=== PATIENT | male | born 1960 | race African-American/Black ===

== ENCOUNTER 2018-11-03 15:40 | Inpatient (IN) ==
[2018-11-03] MEDS ORDERED: methylPREDNISolone SOD SUC 125 MG/2 ML VIAL IV STA (16:09)
[2018-11-03] MEDS ORDERED: SODIUM CHLORIDE 0.9% 1,000 ML IV STA (16:09)
[2018-11-03] MEDS ORDERED: ONDANSETRON 4 MG/2 ML VIAL IV STA (16:09)
[2018-11-03] MEDS ORDERED: METOCLOPRAMIDE 10 MG/2 ML VIAL IV STA (16:09)
[2018-11-03] MEDS ORDERED: DICYCLOMINE 20 MG/2 ML AMP IM ONE (16:09)
[2018-11-03] MEDS ORDERED: FAMOTIDINE 20 MG/2 ML VIAL IV STA (16:09)
[2018-11-03] MEDS ORDERED: fentaNYL 100 MCG/2 ML VIAL IV STA (16:09)
[2018-11-03 16:42] LABS: Basophils % 0.3 % (0.0-0.8); Eosinophils % 0.4 % (0.00-10.9); Hemoglobin 10.1 GM/DL (14.0-18.0); Immature Granulocytes Absolute 0.09 #; Mean Corpuscular HGB Conc 30.6 GM/DL (32-36); Mean Corpuscular Volume 82.9 FL (87-102); Mean Platelet Volume 10.2 FL (9.6-12.0); Monocytes % 11.3 % (1.7-12.7); Platelet Count 363 T/CUMM (130-400); Red Blood Count 3.98 MC/CUMM (3.8-5.5); Red Cell Distribution Width 13.2 % (9.3-17.3); White Blood Count 9.5 T/CUMM (4-12)
[2018-11-03 16:51] LABS: PT Patient Result 11.1 SECS; Partial Thromboplastin Time 31.4 SECS (0-40)
[2018-11-03 17:03] LABS: Alanine Aminotransferase 51 U/L (16-61); Albumin 2.6 G/DL (3.4-5.0); Alkaline Phosphatase 95 U/L (45-117); Aspartate Amino Transferase 48 U/L (0-37); Blood Urea Nitrogen 13 MG/DL (7-18); Calcium 9.2 MG/DL (8.5-10.1); Glucose 127 MG/DL (74-106); Osmolality,Calculated 278.5 MOS/KG (273-304); Total Protein 7.6 G/DL (6.4-8.3); Troponin I < 0.015 NG/ML (0.00-0.045)
[2018-11-03] MEDS ORDERED: ACETAMINOPHEN 325 MG TABLET PO PRN (21:37)
[2018-11-03] MEDS: MORPHINE 4 MG/1 ML VIAL IV PRN (22:59)
[2018-11-03] MEDS: metroNIDAZOLE INJ 500 MG in PREMIX 1 EACH IV SCH (23:02)
[2018-11-04] MEDS: LEVOFLOXACIN INJ 500 MG in PREMIX 1 EACH IV SCH ×2 (00:05→22:12)
[2018-11-04] MEDS: SODIUM CHLORIDE 0.9% 1,000 ML IV SCH ×3 (00:40→13:47)
[2018-11-04] MEDS: MORPHINE 4 MG/1 ML VIAL IV PRN ×4 (02:48→22:09)
[2018-11-04 04:41] LABS: Basophils % 0.2 % (0.0-0.8); Hemoglobin 9.3 GM/DL (14.0-18.0); Immature Granulocytes % 0.8 %; Immature Granulocytes Absolute 0.07 #; Lymphocytes # 0.6 10*3/uL (1.4-4.0); Lymphocytes % 6.6 % (21.2-54.2); Mean Corpuscular Volume 82.6 FL (87-102); Monocytes % 5.3 % (1.7-12.7); Neutrophils % 87.1 % (38.7-73.9); Platelet Count 312 T/CUMM (130-400); Red Blood Count 3.63 MC/CUMM (3.8-5.5); Red Cell Distribution Width 13.2 % (9.3-17.3); White Blood Count 8.5 T/CUMM (4-12)
[2018-11-04 05:05] LABS: Albumin 2.4 G/DL (3.4-5.0); Bilirubin,Total 0.5 MG/DL (0.2-1.0); Calcium 8.7 MG/DL (8.5-10.1); Osmolality,Calculated 284.5 MOS/KG (273-304); Total Protein 7.1 G/DL (6.4-8.3)
[2018-11-04] MEDS: metroNIDAZOLE INJ 500 MG in PREMIX 1 EACH IV SCH ×4 (05:22→23:31)
[2018-11-04] MEDS: PANTOPRAZOLE 40 MG TABLET PO SCH (08:41)
[2018-11-04] MEDS ORDERED: GLUCAGON 1 MG VIAL IM PRN (11:04)
[2018-11-04] MEDS ORDERED: DEXTROSE 50% 25 GM/50 ML VIAL IV PRN (11:04)
[2018-11-04] MEDS: INSULIN REGULAR 100 UNIT/ML SUBCUT SCH ×2 (12:15→17:28)
[2018-11-04] MEDS: amLODIPine 5 MG TABLET PO SCH (12:15)
[2018-11-04] MEDS: QUINAPRIL 20 MG TABLET PO SCH ×2 (12:15→20:36)
[2018-11-04] MEDS ORDERED: MESALAMINE 0.375 GM PO SCH (13:00)
[2018-11-04] MEDS: methylPREDNISolone SOD SUC 125 MG/2 ML VIAL IV SCH (15:13)
[2018-11-04] MEDS: ATORVASTATIN 10 MG TABLET PO SCH (17:28)
[2018-11-04] MEDS: FERROUS SULFATE 325 MG TABLET PO SCH (20:36)
[2018-11-04] MEDS: METOPROLOL TARTRATE 50 MG TABLET PO SCH (20:36)
[2018-11-04] MEDS: MESALAMINE 1000 MG SUPP RECTAL SCH (20:37)
[2018-11-05] MEDS: INSULIN REGULAR 100 UNIT/ML SUBCUT SCH ×5 (00:25→23:08)
[2018-11-05] MEDS: SODIUM CHLORIDE 0.9% 1,000 ML IV SCH ×2 (00:29→11:55)
[2018-11-05] MEDS: MORPHINE 4 MG/1 ML VIAL IV PRN ×4 (02:13→23:44)
[2018-11-05] MEDS: methylPREDNISolone SOD SUC 125 MG/2 ML VIAL IV SCH ×2 (02:16→12:35)
[2018-11-05 05:07] LABS: Risk Ratio 1.83; VLDL CHOLESTEROL 15.2 MG/DL
[2018-11-05] MEDS: metroNIDAZOLE INJ 500 MG in PREMIX 1 EACH IV SCH ×4 (05:48→23:09)
[2018-11-05] MEDS: FERROUS SULFATE 325 MG TABLET PO SCH ×2 (08:28→21:03)
[2018-11-05] MEDS: METOPROLOL TARTRATE 50 MG TABLET PO SCH ×2 (08:28→21:03)
[2018-11-05] MEDS: PANTOPRAZOLE 40 MG TABLET PO SCH (08:29)
[2018-11-05] MEDS: amLODIPine 5 MG TABLET PO SCH (08:29)
[2018-11-05] MEDS: QUINAPRIL 20 MG TABLET PO SCH ×2 (08:34→21:02)
[2018-11-05 11:40] LABS: Basophils % 0.2 % (0.0-0.8); Hematocrit 29.7 VOL% (42.0-52.0); Immature Granulocytes Absolute 0.09 #; Lymphocytes # 0.6 10*3/uL (1.4-4.0); Lymphocytes % 6.4 % (21.2-54.2); Mean Corpuscular HGB Conc 30.3 GM/DL (32-36); Mean Corpuscular Volume 84.6 FL (87-102); Mean Platelet Volume 10.2 FL (9.6-12.0); Neutrophils % 87.4 % (38.7-73.9); Platelet Count 354 T/CUMM (130-400); Red Blood Count 3.51 MC/CUMM (3.8-5.5); Red Cell Distribution Width 13.5 % (9.3-17.3); White Blood Count 8.8 T/CUMM (4-12)
[2018-11-05] MEDS: ATORVASTATIN 10 MG TABLET PO SCH (17:25)
[2018-11-05] MEDS: MESALAMINE 1000 MG SUPP RECTAL SCH (21:04)
[2018-11-05] MEDS: LEVOFLOXACIN INJ 500 MG in PREMIX 1 EACH IV SCH (21:31)
[2018-11-06] MEDS: SODIUM CHLORIDE 0.9% 1,000 ML IV SCH ×2 (01:19→13:06)
[2018-11-06] MEDS: methylPREDNISolone SOD SUC 125 MG/2 ML VIAL IV SCH (01:20)
[2018-11-06 04:38] LABS: Basophils % 0.1 % (0.0-0.8); Hematocrit 29.4 VOL% (42.0-52.0); Hemoglobin 8.7 GM/DL (14.0-18.0); Immature Granulocytes % 0.9 %; Immature Granulocytes Absolute 0.07 #; Lymphocytes # 0.6 10*3/uL (1.4-4.0); Lymphocytes % 7.3 % (21.2-54.2); Mean Corpuscular HGB Conc 29.6 GM/DL (32-36); Mean Corpuscular Volume 84.2 FL (87-102); Mean Platelet Volume 10.5 FL (9.6-12.0); Monocytes % 6.4 % (1.7-12.7); Neutrophils % 85.3 % (38.7-73.9); Platelet Count 320 T/CUMM (130-400); Red Blood Count 3.49 MC/CUMM (3.8-5.5); Red Cell Distribution Width 13.5 % (9.3-17.3); White Blood Count 8.1 T/CUMM (4-12)
[2018-11-06] MEDS: metroNIDAZOLE INJ 500 MG in PREMIX 1 EACH IV SCH ×2 (05:03→13:06)
[2018-11-06] MEDS: INSULIN REGULAR 100 UNIT/ML SUBCUT SCH ×2 (06:25→13:31)
[2018-11-06] MEDS: FERROUS SULFATE 325 MG TABLET PO SCH (08:51)
[2018-11-06] MEDS: METOPROLOL TARTRATE 50 MG TABLET PO SCH (08:51)
[2018-11-06] MEDS: QUINAPRIL 20 MG TABLET PO SCH (08:51)
[2018-11-06] MEDS: PANTOPRAZOLE 40 MG TABLET PO SCH (08:51)
[2018-11-06] MEDS: amLODIPine 5 MG TABLET PO SCH (08:51)
[2018-11-06 12:44] VITALS: BP 124/63
== END 2018-11-06 14:15 | disposition home or self-care (01) | DRG 387 ==
LOC: EDUNIT# → EDBD → N.EDINP 15:40 → N.ED 15:40 → N.4E 21:02
PROVIDERS: ADMIT Internal Medicine; ATTEND Internal Medicine

== ENCOUNTER 2018-11-16 21:41 | Inpatient (IN) ==
[2018-11-16 22:48] LABS: Basophils % 0.1 % (0.0-0.8); Eosinophils % 0.1 % (0.00-10.9); Hematocrit 33.8 VOL% (42.0-52.0); Hemoglobin 10.5 GM/DL (14.0-18.0); Immature Granulocytes % 0.9 %; Immature Granulocytes Absolute 0.09 #; Lymphocytes % 9.7 % (21.2-54.2); Mean Corpuscular HGB Conc 31.1 GM/DL (32-36); Mean Corpuscular Volume 84.9 FL (87-102); Mean Platelet Volume 10.5 FL (9.6-12.0); Monocytes % 10.5 % (1.7-12.7); Neutrophils % 78.7 % (38.7-73.9); Platelet Count 428 T/CUMM (130-400); Red Blood Count 3.98 MC/CUMM (3.8-5.5); Red Cell Distribution Width 15.7 % (9.3-17.3); White Blood Count 10.1 T/CUMM (4-12)
[2018-11-16 23:06] LABS: Alanine Aminotransferase 40 U/L (16-61); Albumin 2.6 G/DL (3.4-5.0); Alkaline Phosphatase 72 U/L (45-117); Aspartate Amino Transferase 21 U/L (0-37); Blood Urea Nitrogen 24 MG/DL (7-18); Calcium 8.3 MG/DL (8.5-10.1); Glucose 119 MG/DL (74-106); Osmolality,Calculated 277.8 MOS/KG (273-304); Total Protein 6.8 G/DL (6.4-8.3); Troponin I < 0.015 NG/ML (0.00-0.045)
[2018-11-16] MEDS ORDERED: SODIUM CHLORIDE 0.9% 1,000 ML IV STA (23:16)
[2018-11-17 02:43] LABS: Apearance,Urine CLEAR (Clear); Bilirubin,Urine Negative (Negative); Blood, Urine Negative (Negative); Glucose,Urine (UA) 150 mg/dL (Negative); Ketones,Urine 5 mg/dL (Negative); Mucus,Urine Occasional /LPF (Occasional); Nitrite,Urine Negative (Negative); Protein,Urine Negative; RBC,Urine 2 /HPF (0-4); Urine Color Yellow (Yellow); Urine Specific Gravity 1.017 (1.001-1.035); Urine Urobilinogen < 2.0 EU/DL (0.2-1.0); WBC,Urine 1 /HPF (0-6)
[2018-11-17] MEDS ORDERED: NICOTINE 21 MG/24 HR PATCH TRANSDERM PRN (03:19)
[2018-11-17] MEDS ORDERED: diphenhydrAMINE CAP 25 MG CAPSULE PO PRN (03:19)
[2018-11-17] MEDS ORDERED: ACETAMINOPHEN 325 MG TABLET PO PRN (03:19)
[2018-11-17] MEDS: MORPHINE 4 MG/1 ML VIAL IV PRN ×4 (04:25→22:35)
[2018-11-17] MEDS: SODIUM CHLORIDE 0.9% 1,000 ML IV SCH ×3 (04:30→22:32)
[2018-11-17] MEDS: MESALAMINE 800 MG TABLET PO SCH ×4 (08:49→22:34)
[2018-11-17] MEDS: PANTOPRAZOLE 40 MG TABLET PO SCH (08:50)
[2018-11-17] MEDS: methylPREDNISolone SOD SUC 40 MG/1 ML VIAL IV SCH ×3 (08:50→22:34)
[2018-11-17] MEDS: ONDANSETRON 4 MG/2 ML VIAL IV PRN ×2 (09:06→17:35)
[2018-11-17] MEDS: AMPICILLIN/SULBACTAM 1,500 MG in SODIUM CHLORIDE 0.9% 100 ML IV SCH ×2 (09:53→17:06)
[2018-11-17] MEDS ORDERED: ADALIMUMAB SUBCUT ONE (10:00)
[2018-11-17] MEDS ORDERED: QUINAPRIL 20 MG TABLET PO SCH (11:00)
[2018-11-17] MEDS: PRAMOXINE/HYDROCORTISONE RECTAL FOAM 10 GM CAN RECTAL SCH ×4 (11:03→22:35)
[2018-11-17] MEDS: ASPIRIN CHEW 81 MG TABLET PO SCH (11:04)
[2018-11-17] MEDS: METOPROLOL TARTRATE 50 MG TABLET PO SCH ×2 (11:04→22:34)
[2018-11-17] MEDS: INSULIN LISPRO 100 UNIT/ML SUBCUT SCH ×3 (11:17→22:34)
[2018-11-17] MEDS: ATORVASTATIN 10 MG TABLET PO SCH (17:06)
[2018-11-18] MEDS: methylPREDNISolone SOD SUC 40 MG/1 ML VIAL IV SCH ×4 (02:58→21:21)
[2018-11-18] MEDS: AMPICILLIN/SULBACTAM 1,500 MG in SODIUM CHLORIDE 0.9% 100 ML IV SCH ×3 (02:58→17:59)
[2018-11-18 06:12] LABS: Basophils % 0.2 % (0.0-0.8); Hematocrit 29.4 VOL% (42.0-52.0); Hemoglobin 8.8 GM/DL (14.0-18.0); Immature Granulocytes % 0.7 %; Immature Granulocytes Absolute 0.03 #; Lymphocytes # 0.3 10*3/uL (1.4-4.0); Lymphocytes % 6.5 % (21.2-54.2); Mean Corpuscular HGB Conc 29.9 GM/DL (32-36); Mean Corpuscular Volume 86.7 FL (87-102); Mean Platelet Volume 11.3 FL (9.6-12.0); Monocytes % 4.6 % (1.7-12.7); Platelet Count 247 T/CUMM (130-400); Red Blood Count 3.39 MC/CUMM (3.8-5.5); Red Cell Distribution Width 15.8 % (9.3-17.3); White Blood Count 4.3 T/CUMM (4-12)
[2018-11-18] MEDS: SODIUM CHLORIDE 0.9% 1,000 ML IV SCH ×3 (07:25→18:59)
[2018-11-18 08:01] LABS: Calcium 8.1 MG/DL (8.5-10.1)
[2018-11-18] MEDS: ENALAPRIL 10 MG TABLET PO SCH (09:08)
[2018-11-18] MEDS: INSULIN LISPRO 100 UNIT/ML SUBCUT SCH ×4 (09:10→21:24)
[2018-11-18] MEDS: PANTOPRAZOLE 40 MG TABLET PO SCH (09:11)
[2018-11-18] MEDS: MESALAMINE 800 MG TABLET PO SCH ×4 (09:11→21:18)
[2018-11-18] MEDS: ASPIRIN CHEW 81 MG TABLET PO SCH (09:11)
[2018-11-18] MEDS: METOPROLOL TARTRATE 50 MG TABLET PO SCH ×2 (09:11→21:18)
[2018-11-18] MEDS: PRAMOXINE/HYDROCORTISONE RECTAL FOAM 10 GM CAN RECTAL SCH ×4 (09:16→21:25)
[2018-11-18] MEDS ORDERED: ADALIMUMAB SUBCUT ONE (09:30)
[2018-11-18] MEDS ORDERED: ADALIMUMAB 40 MG/0.8 ML SUBCUT ONE (10:00)
[2018-11-18] MEDS: ATORVASTATIN 10 MG TABLET PO SCH (16:37)
[2018-11-18] MEDS: MORPHINE 4 MG/1 ML VIAL IV PRN (21:22)
[2018-11-19] MEDS: MORPHINE 4 MG/1 ML VIAL IV PRN ×3 (00:39→21:22)
[2018-11-19] MEDS: AMPICILLIN/SULBACTAM 1,500 MG in SODIUM CHLORIDE 0.9% 100 ML IV SCH ×3 (03:30→17:11)
[2018-11-19] MEDS: SODIUM CHLORIDE 0.9% 1,000 ML IV SCH ×3 (03:31→19:44)
[2018-11-19] MEDS: methylPREDNISolone SOD SUC 40 MG/1 ML VIAL IV SCH ×4 (03:31→21:24)
[2018-11-19 05:16] LABS: Hemoglobin 8.3 GM/DL (14.0-18.0); Immature Granulocytes % 0.8 %; Immature Granulocytes Absolute 0.03 #; Lymphocytes # 0.4 10*3/uL (1.4-4.0); Lymphocytes % 10.9 % (21.2-54.2); Mean Corpuscular HGB Conc 30.7 GM/DL (32-36); Mean Corpuscular Volume 85.2 FL (87-102); Mean Platelet Volume 10.4 FL (9.6-12.0); Monocytes % 7.7 % (1.7-12.7); Neutrophils % 80.6 % (38.7-73.9); Platelet Count 279 T/CUMM (130-400); Red Blood Count 3.17 MC/CUMM (3.8-5.5); Red Cell Distribution Width 15.7 % (9.3-17.3); White Blood Count 3.8 T/CUMM (4-12)
[2018-11-19 05:40] LABS: Calcium 7.7 MG/DL (8.5-10.1); Osmolality,Calculated 276.7 MOS/KG (273-304)
[2018-11-19] MEDS: ENALAPRIL 10 MG TABLET PO SCH (08:35)
[2018-11-19] MEDS: ASPIRIN CHEW 81 MG TABLET PO SCH (08:35)
[2018-11-19] MEDS: METOPROLOL TARTRATE 50 MG TABLET PO SCH ×2 (08:35→21:18)
[2018-11-19] MEDS: INSULIN LISPRO 100 UNIT/ML SUBCUT SCH ×4 (08:36→21:16)
[2018-11-19] MEDS: MESALAMINE 800 MG TABLET PO SCH ×4 (08:36→21:18)
[2018-11-19] MEDS: PANTOPRAZOLE 40 MG TABLET PO SCH (08:36)
[2018-11-19] MEDS: PRAMOXINE/HYDROCORTISONE RECTAL FOAM 10 GM CAN RECTAL SCH ×4 (08:37→21:19)
[2018-11-19] MEDS: ATORVASTATIN 10 MG TABLET PO SCH (17:11)
[2018-11-19] MEDS ORDERED: NON-FORMULARY MEDICATION (Insulin Degludec [Tresiba Flextouch U-200] 50 UNIT) SUBCUT SCH (21:00)
[2018-11-19] MEDS: INSULIN GLARGINE 100 UNIT/ML SUBCUT SCH (21:17)
[2018-11-20] MEDS: MORPHINE 4 MG/1 ML VIAL IV PRN ×5 (01:27→20:22)
[2018-11-20] MEDS: AMPICILLIN/SULBACTAM 1,500 MG in SODIUM CHLORIDE 0.9% 100 ML IV SCH ×3 (01:29→17:43)
[2018-11-20] MEDS: methylPREDNISolone SOD SUC 40 MG/1 ML VIAL IV SCH ×4 (03:15→20:24)
[2018-11-20] MEDS: SODIUM CHLORIDE 0.9% 1,000 ML IV SCH ×3 (05:12→21:24)
[2018-11-20 05:33] LABS: Basophils % 0.3 % (0.0-0.8); Hematocrit 31.8 VOL% (42.0-52.0); Hemoglobin 9.4 GM/DL (14.0-18.0); Immature Granulocytes % 0.9 %; Immature Granulocytes Absolute 0.07 #; Lymphocytes # 0.5 10*3/uL (1.4-4.0); Lymphocytes % 6.4 % (21.2-54.2); Mean Corpuscular HGB Conc 29.6 GM/DL (32-36); Mean Corpuscular Volume 86.4 FL (87-102); Mean Platelet Volume 11.6 FL (9.6-12.0); Monocytes % 7.7 % (1.7-12.7); Neutrophils % 84.7 % (38.7-73.9); Platelet Count 218 T/CUMM (130-400); Red Blood Count 3.68 MC/CUMM (3.8-5.5); Red Cell Distribution Width 15.7 % (9.3-17.3); White Blood Count 7.9 T/CUMM (4-12)
[2018-11-20 05:54] LABS: Calcium 8.1 MG/DL (8.5-10.1); Osmolality,Calculated 278.7 MOS/KG (273-304)
[2018-11-20] MEDS: MESALAMINE 800 MG TABLET PO SCH ×4 (09:04→20:27)
[2018-11-20] MEDS: metFORMIN 500 MG TABLET PO SCH ×2 (09:04→20:27)
[2018-11-20] MEDS: METOPROLOL TARTRATE 50 MG TABLET PO SCH ×2 (09:04→22:10)
[2018-11-20] MEDS: ASPIRIN CHEW 81 MG TABLET PO SCH (09:04)
[2018-11-20] MEDS: ENALAPRIL 10 MG TABLET PO SCH (09:04)
[2018-11-20] MEDS: PANTOPRAZOLE 40 MG TABLET PO SCH (09:04)
[2018-11-20] MEDS: INSULIN LISPRO 100 UNIT/ML SUBCUT SCH ×4 (09:05→21:25)
[2018-11-20] MEDS: PRAMOXINE/HYDROCORTISONE RECTAL FOAM 10 GM CAN RECTAL SCH ×4 (09:06→21:27)
[2018-11-20] MEDS: ATORVASTATIN 10 MG TABLET PO SCH (17:42)
[2018-11-20] MEDS: INSULIN GLARGINE 100 UNIT/ML SUBCUT SCH (20:23)
[2018-11-21] MEDS: MORPHINE 4 MG/1 ML VIAL IV PRN ×2 (02:33→12:59)
[2018-11-21] MEDS: methylPREDNISolone SOD SUC 40 MG/1 ML VIAL IV SCH ×4 (02:35→21:15)
[2018-11-21] MEDS: AMPICILLIN/SULBACTAM 1,500 MG in SODIUM CHLORIDE 0.9% 100 ML IV SCH ×3 (02:37→21:06)
[2018-11-21] MEDS: SODIUM CHLORIDE 0.9% 1,000 ML IV SCH ×2 (05:47→17:53)
[2018-11-21] MEDS ORDERED: SODIUM PHOSPHATE ENEMA 133 ML BOTTLE RECTAL ONE (06:00)
[2018-11-21] MEDS ORDERED: LACTATED RINGERS 1,000 ML IV SCH (08:00)
[2018-11-21] MEDS: INSULIN LISPRO 100 UNIT/ML SUBCUT SCH ×4 (09:49→21:05)
[2018-11-21] MEDS ORDERED: PROPOFOL 200 MG/20 ML VIAL IV ONE (10:00)
[2018-11-21] MEDS ORDERED: LIDOCAINE 2% 5 ML VIAL ONE (10:00)
[2018-11-21 11:30] LABS: Basophils % 0.1 % (0.0-0.8); Hematocrit 29.7 VOL% (42.0-52.0); Hemoglobin 8.9 GM/DL (14.0-18.0); Immature Granulocytes % 0.7 %; Immature Granulocytes Absolute 0.05 #; Lymphocytes # 0.8 10*3/uL (1.4-4.0); Lymphocytes % 10.5 % (21.2-54.2); Mean Corpuscular Volume 87.4 FL (87-102); Mean Platelet Volume 10.3 FL (9.6-12.0); Monocytes % 10.3 % (1.7-12.7); Neutrophils % 78.4 % (38.7-73.9); Platelet Count 292 T/CUMM (130-400); Red Cell Distribution Width 16.3 % (9.3-17.3); White Blood Count 7.4 T/CUMM (4-12)
[2018-11-21 11:53] LABS: Calcium 8.2 MG/DL (8.5-10.1); Osmolality,Calculated 281.4 MOS/KG (273-304)
[2018-11-21] MEDS: metFORMIN 500 MG TABLET PO SCH ×2 (13:56→21:04)
[2018-11-21] MEDS: MESALAMINE 800 MG TABLET PO SCH ×4 (13:57→21:07)
[2018-11-21] MEDS: ASPIRIN CHEW 81 MG TABLET PO SCH (13:58)
[2018-11-21] MEDS: PANTOPRAZOLE 40 MG TABLET PO SCH (13:58)
[2018-11-21] MEDS: METOPROLOL TARTRATE 50 MG TABLET PO SCH (13:59)
[2018-11-21] MEDS: ENALAPRIL 10 MG TABLET PO SCH (14:00)
[2018-11-21] MEDS: PRAMOXINE/HYDROCORTISONE RECTAL FOAM 10 GM CAN RECTAL SCH ×3 (14:06→21:08)
[2018-11-21] MEDS: ATORVASTATIN 10 MG TABLET PO SCH (17:23)
[2018-11-21] MEDS: METOPROLOL TARTRATE 25 MG TABLET PO SCH (21:04)
[2018-11-21] MEDS: INSULIN GLARGINE 100 UNIT/ML SUBCUT SCH (21:05)
[2018-11-21] MEDS: MESALAMINE ENEMA 4 GM/60 ML BOTTLE RECTAL SCH (21:14)
[2018-11-22] MEDS: MORPHINE 4 MG/1 ML VIAL IV PRN ×4 (00:26→21:50)
[2018-11-22] MEDS: SODIUM CHLORIDE 0.9% 1,000 ML IV SCH ×3 (02:19→20:44)
[2018-11-22] MEDS: methylPREDNISolone SOD SUC 40 MG/1 ML VIAL IV SCH ×4 (03:36→21:48)
[2018-11-22] MEDS: AMPICILLIN/SULBACTAM 1,500 MG in SODIUM CHLORIDE 0.9% 100 ML IV SCH ×3 (04:36→18:04)
[2018-11-22 05:41] LABS: Basophils % 0.1 % (0.0-0.8); Hemoglobin 9.4 GM/DL (14.0-18.0); Immature Granulocytes Absolute 0.09 #; Lymphocytes # 0.6 10*3/uL (1.4-4.0); Lymphocytes % 6.8 % (21.2-54.2); Mean Corpuscular HGB Conc 30.3 GM/DL (32-36); Mean Corpuscular Volume 87.3 FL (87-102); Mean Platelet Volume 10.1 FL (9.6-12.0); Monocytes % 6.2 % (1.7-12.7); Neutrophils % 85.9 % (38.7-73.9); Platelet Count 295 T/CUMM (130-400); Red Blood Count 3.55 MC/CUMM (3.8-5.5); Red Cell Distribution Width 16.4 % (9.3-17.3); White Blood Count 8.9 T/CUMM (4-12)
[2018-11-22 06:05] LABS: Calcium 8.1 MG/DL (8.5-10.1); Osmolality,Calculated 277.4 MOS/KG (273-304)
[2018-11-22] MEDS: metFORMIN 500 MG TABLET PO SCH ×2 (09:27→21:48)
[2018-11-22] MEDS: METOPROLOL TARTRATE 25 MG TABLET PO SCH ×2 (09:28→21:48)
[2018-11-22] MEDS: MESALAMINE 800 MG TABLET PO SCH ×4 (09:28→21:48)
[2018-11-22] MEDS: PANTOPRAZOLE 40 MG TABLET PO SCH (09:28)
[2018-11-22] MEDS: ASPIRIN CHEW 81 MG TABLET PO SCH (09:31)
[2018-11-22] MEDS: PRAMOXINE/HYDROCORTISONE RECTAL FOAM 10 GM CAN RECTAL SCH ×4 (09:32→21:55)
[2018-11-22] MEDS: ENALAPRIL 10 MG TABLET PO SCH (09:32)
[2018-11-22] MEDS: INSULIN LISPRO 100 UNIT/ML SUBCUT SCH ×4 (09:33→21:50)
[2018-11-22] MEDS: ATORVASTATIN 10 MG TABLET PO SCH (16:27)
[2018-11-22] MEDS ORDERED: MORPHINE 4 MG/1 ML VIAL IV SCH (18:30)
[2018-11-22] MEDS ORDERED: SODIUM CHLORIDE 0.9% 250 ML IV ONE (19:00)
[2018-11-22 19:06] LABS: Hematocrit 31.1 VOL% (42.0-52.0); Hemoglobin 9.3 GM/DL (14.0-18.0)
[2018-11-22] MEDS: INSULIN GLARGINE 100 UNIT/ML SUBCUT SCH (21:49)
[2018-11-22] MEDS: MESALAMINE ENEMA 4 GM/60 ML BOTTLE RECTAL SCH (21:50)
[2018-11-23] MEDS: AMPICILLIN/SULBACTAM 1,500 MG in SODIUM CHLORIDE 0.9% 100 ML IV SCH ×3 (02:30→17:49)
[2018-11-23] MEDS: MESALAMINE ENEMA 4 GM/60 ML BOTTLE RECTAL SCH ×2 (02:44→20:46)
[2018-11-23] MEDS: methylPREDNISolone SOD SUC 40 MG/1 ML VIAL IV SCH ×4 (02:57→20:42)
[2018-11-23] MEDS: MORPHINE 4 MG/1 ML VIAL IV PRN ×3 (02:58→20:41)
[2018-11-23] MEDS: SODIUM CHLORIDE 0.9% 1,000 ML IV SCH ×3 (04:16→20:46)
[2018-11-23 06:22] LABS: Basophils % 0.2 % (0.0-0.8); Hematocrit 31.5 VOL% (42.0-52.0); Hemoglobin 9.2 GM/DL (14.0-18.0); Immature Granulocytes % 1.1 %; Immature Granulocytes Absolute 0.13 #; Lymphocytes # 0.6 10*3/uL (1.4-4.0); Lymphocytes % 5.1 % (21.2-54.2); Mean Corpuscular HGB Conc 29.2 GM/DL (32-36); Mean Corpuscular Volume 89.7 FL (87-102); Mean Platelet Volume 10.7 FL (9.6-12.0); Monocytes % 3.8 % (1.7-12.7); Neutrophils % 89.8 % (38.7-73.9); Platelet Count 276 T/CUMM (130-400); Red Blood Count 3.51 MC/CUMM (3.8-5.5); Red Cell Distribution Width 17.1 % (9.3-17.3); White Blood Count 12.3 T/CUMM (4-12)
[2018-11-23 06:47] LABS: Calcium 7.9 MG/DL (8.5-10.1); Osmolality,Calculated 281.3 MOS/KG (273-304)
[2018-11-23] MEDS: INSULIN LISPRO 100 UNIT/ML SUBCUT SCH ×4 (08:46→20:41)
[2018-11-23] MEDS: MESALAMINE 800 MG TABLET PO SCH ×4 (08:47→20:41)
[2018-11-23] MEDS: METOPROLOL TARTRATE 25 MG TABLET PO SCH ×2 (08:47→20:41)
[2018-11-23] MEDS: ENALAPRIL 10 MG TABLET PO SCH (08:48)
[2018-11-23] MEDS: metFORMIN 500 MG TABLET PO SCH ×2 (08:48→20:41)
[2018-11-23] MEDS: PRAMOXINE/HYDROCORTISONE RECTAL FOAM 10 GM CAN RECTAL SCH ×4 (08:49→20:43)
[2018-11-23] MEDS: ASPIRIN CHEW 81 MG TABLET PO SCH (08:49)
[2018-11-23] MEDS: PANTOPRAZOLE 40 MG TABLET PO SCH (08:49)
[2018-11-23] MEDS: ATORVASTATIN 10 MG TABLET PO SCH (16:15)
[2018-11-23] MEDS: INSULIN GLARGINE 100 UNIT/ML SUBCUT SCH (20:41)
[2018-11-24] MEDS: AMPICILLIN/SULBACTAM 1,500 MG in SODIUM CHLORIDE 0.9% 100 ML IV SCH ×3 (02:38→17:11)
[2018-11-24] MEDS: MORPHINE 4 MG/1 ML VIAL IV PRN ×3 (02:39→20:30)
[2018-11-24] MEDS: methylPREDNISolone SOD SUC 40 MG/1 ML VIAL IV SCH ×4 (03:55→20:31)
[2018-11-24 04:46] LABS: Basophils % 0.2 % (0.0-0.8); Hematocrit 26.2 VOL% (42.0-52.0); Hemoglobin 7.8 GM/DL (14.0-18.0); Immature Granulocytes % 1.2 %; Immature Granulocytes Absolute 0.14 #; Lymphocytes # 0.7 10*3/uL (1.4-4.0); Lymphocytes % 6.5 % (21.2-54.2); Mean Corpuscular HGB Conc 29.8 GM/DL (32-36); Mean Corpuscular Volume 88.5 FL (87-102); Mean Platelet Volume 10.8 FL (9.6-12.0); Monocytes % 8.3 % (1.7-12.7); Neutrophils % 83.8 % (38.7-73.9); Platelet Count 233 T/CUMM (130-400); Red Blood Count 2.96 MC/CUMM (3.8-5.5); Red Cell Distribution Width 17.1 % (9.3-17.3); White Blood Count 11.4 T/CUMM (4-12)
[2018-11-24 05:07] LABS: Calcium 7.6 MG/DL (8.5-10.1); Osmolality,Calculated 284.8 MOS/KG (273-304)
[2018-11-24] MEDS: metFORMIN 500 MG TABLET PO SCH ×2 (08:02→20:32)
[2018-11-24] MEDS: MESALAMINE 800 MG TABLET PO SCH ×4 (08:03→20:32)
[2018-11-24] MEDS: PANTOPRAZOLE 40 MG TABLET PO SCH (08:03)
[2018-11-24] MEDS: ENALAPRIL 10 MG TABLET PO SCH (08:03)
[2018-11-24] MEDS: ASPIRIN CHEW 81 MG TABLET PO SCH (08:03)
[2018-11-24] MEDS: METOPROLOL TARTRATE 25 MG TABLET PO SCH ×2 (08:03→20:32)
[2018-11-24] MEDS: PRAMOXINE/HYDROCORTISONE RECTAL FOAM 10 GM CAN RECTAL SCH ×4 (08:10→20:33)
[2018-11-24] MEDS: INSULIN LISPRO 100 UNIT/ML SUBCUT SCH ×4 (08:10→20:32)
[2018-11-24] MEDS ORDERED: SODIUM CHLORIDE 0.9% 1,000 ML IV PRN (08:34)
[2018-11-24] MEDS: SODIUM CHLORIDE 0.9% 1,000 ML IV SCH ×2 (09:05)
[2018-11-24] MEDS: ATORVASTATIN 10 MG TABLET PO SCH (16:22)
[2018-11-24 20:12] LABS: Hematocrit 33.6 VOL% (42.0-52.0); Hemoglobin 10.2 GM/DL (14.0-18.0)
[2018-11-24] MEDS: INSULIN GLARGINE 100 UNIT/ML SUBCUT SCH (20:32)
[2018-11-24] MEDS: MESALAMINE ENEMA 4 GM/60 ML BOTTLE RECTAL SCH (20:32)
[2018-11-25] MEDS: SODIUM CHLORIDE 0.9% 1,000 ML IV SCH ×5 (00:18→19:22)
[2018-11-25] MEDS: AMPICILLIN/SULBACTAM 1,500 MG in SODIUM CHLORIDE 0.9% 100 ML IV SCH ×3 (01:43→18:00)
[2018-11-25] MEDS: MORPHINE 4 MG/1 ML VIAL IV PRN ×2 (01:43→06:03)
[2018-11-25] MEDS: methylPREDNISolone SOD SUC 40 MG/1 ML VIAL IV SCH ×4 (03:34→20:37)
[2018-11-25 04:46] LABS: Basophils % 0.3 % (0.0-0.8); Hematocrit 35.2 VOL% (42.0-52.0); Hemoglobin 10.9 GM/DL (14.0-18.0); Immature Granulocytes % 1.2 %; Immature Granulocytes Absolute 0.13 #; Lymphocytes # 0.7 10*3/uL (1.4-4.0); Lymphocytes % 6.6 % (21.2-54.2); Mean Platelet Volume 10.9 FL (9.6-12.0); Monocytes % 7.7 % (1.7-12.7); Neutrophils % 84.2 % (38.7-73.9); Platelet Count 212 T/CUMM (130-400); Red Cell Distribution Width 16.6 % (9.3-17.3); White Blood Count 10.7 T/CUMM (4-12)
[2018-11-25 05:01] LABS: Calcium 8.2 MG/DL (8.5-10.1); Osmolality,Calculated 282.1 MOS/KG (273-304)
[2018-11-25] MEDS: PANTOPRAZOLE 40 MG TABLET PO SCH (08:49)
[2018-11-25] MEDS: ASPIRIN CHEW 81 MG TABLET PO SCH (08:49)
[2018-11-25] MEDS: METOPROLOL TARTRATE 25 MG TABLET PO SCH ×2 (08:49→20:37)
[2018-11-25] MEDS: ENALAPRIL 10 MG TABLET PO SCH (08:49)
[2018-11-25] MEDS: MESALAMINE 800 MG TABLET PO SCH ×4 (08:49→20:36)
[2018-11-25] MEDS: metFORMIN 500 MG TABLET PO SCH ×2 (08:59→20:36)
[2018-11-25] MEDS: INSULIN LISPRO 100 UNIT/ML SUBCUT SCH ×4 (09:13→20:37)
[2018-11-25] MEDS: PRAMOXINE/HYDROCORTISONE RECTAL FOAM 10 GM CAN RECTAL SCH ×4 (10:29→20:38)
[2018-11-25] MEDS: ATORVASTATIN 10 MG TABLET PO SCH (16:53)
[2018-11-25] MEDS: INSULIN GLARGINE 100 UNIT/ML SUBCUT SCH (20:37)
[2018-11-25] MEDS: MESALAMINE ENEMA 4 GM/60 ML BOTTLE RECTAL SCH (22:26)
[2018-11-26] MEDS: AMPICILLIN/SULBACTAM 1,500 MG in SODIUM CHLORIDE 0.9% 100 ML IV SCH ×2 (02:59→13:21)
[2018-11-26] MEDS: methylPREDNISolone SOD SUC 40 MG/1 ML VIAL IV SCH ×4 (03:32→21:25)
[2018-11-26] MEDS: SODIUM CHLORIDE 0.9% 1,000 ML IV SCH ×3 (03:32→21:20)
[2018-11-26 05:34] LABS: Basophils % 0.2 % (0.0-0.8); Hematocrit 33.9 VOL% (42.0-52.0); Hemoglobin 10.3 GM/DL (14.0-18.0); Immature Granulocytes % 1.1 %; Lymphocytes # 0.7 10*3/uL (1.4-4.0); Lymphocytes % 7.3 % (21.2-54.2); Mean Corpuscular HGB Conc 30.4 GM/DL (32-36); Mean Corpuscular Volume 88.5 FL (87-102); Mean Platelet Volume 10.5 FL (9.6-12.0); Monocytes % 11.2 % (1.7-12.7); Neutrophils % 80.2 % (38.7-73.9); Platelet Count 189 T/CUMM (130-400); Red Blood Count 3.83 MC/CUMM (3.8-5.5); Red Cell Distribution Width 16.6 % (9.3-17.3); White Blood Count 9.4 T/CUMM (4-12)
[2018-11-26 06:00] LABS: Calcium 7.7 MG/DL (8.5-10.1); Osmolality,Calculated 285.3 MOS/KG (273-304)
[2018-11-26] MEDS: metFORMIN 500 MG TABLET PO SCH ×2 (08:21→21:22)
[2018-11-26] MEDS: PANTOPRAZOLE 40 MG TABLET PO SCH (08:21)
[2018-11-26] MEDS: MESALAMINE 800 MG TABLET PO SCH ×4 (08:21→21:22)
[2018-11-26] MEDS: ASPIRIN CHEW 81 MG TABLET PO SCH (08:21)
[2018-11-26] MEDS: METOPROLOL TARTRATE 25 MG TABLET PO SCH ×2 (08:22→21:23)
[2018-11-26] MEDS: ENALAPRIL 10 MG TABLET PO SCH (08:22)
[2018-11-26] MEDS: PRAMOXINE/HYDROCORTISONE RECTAL FOAM 10 GM CAN RECTAL SCH ×4 (08:24→21:25)
[2018-11-26] MEDS: INSULIN LISPRO 100 UNIT/ML SUBCUT SCH ×4 (08:33→21:24)
[2018-11-26] MEDS ORDERED: MESALAMINE ENEMA 4 GM/60 ML BOTTLE RECTAL ONE (09:21)
[2018-11-26] MEDS: ATORVASTATIN 10 MG TABLET PO SCH (18:23)
[2018-11-26] MEDS: INSULIN GLARGINE 100 UNIT/ML SUBCUT SCH (21:24)
[2018-11-26] MEDS: MESALAMINE ENEMA 4 GM/60 ML BOTTLE RECTAL SCH (21:25)
[2018-11-27] MEDS: methylPREDNISolone SOD SUC 40 MG/1 ML VIAL IV SCH ×4 (03:08→20:41)
[2018-11-27] MEDS: SODIUM CHLORIDE 0.9% 1,000 ML IV SCH (05:25)
[2018-11-27 05:56] LABS: Basophils % 0.2 % (0.0-0.8); Hematocrit 32.3 VOL% (42.0-52.0); Hemoglobin 9.7 GM/DL (14.0-18.0); Immature Granulocytes % 1.3 %; Immature Granulocytes Absolute 0.11 #; Lymphocytes # 0.6 10*3/uL (1.4-4.0); Lymphocytes % 6.9 % (21.2-54.2); Mean Corpuscular Volume 89.5 FL (87-102); Mean Platelet Volume 10.2 FL (9.6-12.0); Neutrophils % 83.6 % (38.7-73.9); Platelet Count 174 T/CUMM (130-400); Red Blood Count 3.61 MC/CUMM (3.8-5.5); Red Cell Distribution Width 16.7 % (9.3-17.3); White Blood Count 8.5 T/CUMM (4-12)
[2018-11-27] MEDS: INSULIN LISPRO 100 UNIT/ML SUBCUT SCH ×4 (08:40→20:42)
[2018-11-27] MEDS: MORPHINE 4 MG/1 ML VIAL IV PRN ×2 (08:41→13:20)
[2018-11-27] MEDS: ASPIRIN CHEW 81 MG TABLET PO SCH (08:44)
[2018-11-27] MEDS: ENALAPRIL 10 MG TABLET PO SCH (08:44)
[2018-11-27] MEDS: PANTOPRAZOLE 40 MG TABLET PO SCH (08:44)
[2018-11-27] MEDS: MESALAMINE 800 MG TABLET PO SCH ×4 (08:44→20:41)
[2018-11-27] MEDS: metFORMIN 500 MG TABLET PO SCH (08:44)
[2018-11-27] MEDS: METOPROLOL TARTRATE 25 MG TABLET PO SCH ×2 (08:44→20:42)
[2018-11-27] MEDS: PRAMOXINE/HYDROCORTISONE RECTAL FOAM 10 GM CAN RECTAL SCH ×4 (08:48→20:43)
[2018-11-27] MEDS: ATORVASTATIN 10 MG TABLET PO SCH (17:31)
[2018-11-27] MEDS: MESALAMINE ENEMA 4 GM/60 ML BOTTLE RECTAL SCH (20:42)
[2018-11-27] MEDS: INSULIN GLARGINE 100 UNIT/ML SUBCUT SCH (20:43)
[2018-11-28] MEDS: methylPREDNISolone SOD SUC 40 MG/1 ML VIAL IV SCH ×4 (03:08→21:37)
[2018-11-28] MEDS: INSULIN LISPRO 100 UNIT/ML SUBCUT SCH ×4 (08:54→21:39)
[2018-11-28] MEDS: PANTOPRAZOLE 40 MG TABLET PO SCH (08:55)
[2018-11-28] MEDS: METOPROLOL TARTRATE 25 MG TABLET PO SCH ×2 (08:55→21:38)
[2018-11-28] MEDS: ENALAPRIL 10 MG TABLET PO SCH (08:55)
[2018-11-28] MEDS: ASPIRIN CHEW 81 MG TABLET PO SCH (08:55)
[2018-11-28] MEDS: MESALAMINE 800 MG TABLET PO SCH ×4 (08:56→21:38)
[2018-11-28] MEDS: PRAMOXINE/HYDROCORTISONE RECTAL FOAM 10 GM CAN RECTAL SCH ×4 (09:01→21:38)
[2018-11-28] MEDS: MORPHINE 4 MG/1 ML VIAL IV PRN (15:30)
[2018-11-28] MEDS: ATORVASTATIN 10 MG TABLET PO SCH (17:38)
[2018-11-28] MEDS: INSULIN GLARGINE 100 UNIT/ML SUBCUT SCH (21:39)
[2018-11-28] MEDS: MESALAMINE ENEMA 4 GM/60 ML BOTTLE RECTAL SCH (21:41)
[2018-11-29] MEDS: methylPREDNISolone SOD SUC 40 MG/1 ML VIAL IV SCH ×4 (02:01→20:50)
[2018-11-29] MEDS: PANTOPRAZOLE 40 MG TABLET PO SCH (08:39)
[2018-11-29] MEDS: METOPROLOL TARTRATE 25 MG TABLET PO SCH ×2 (08:39→20:49)
[2018-11-29] MEDS: ASPIRIN CHEW 81 MG TABLET PO SCH (08:39)
[2018-11-29] MEDS: ENALAPRIL 10 MG TABLET PO SCH (08:39)
[2018-11-29] MEDS: MESALAMINE 800 MG TABLET PO SCH ×4 (08:39→20:49)
[2018-11-29] MEDS: INSULIN LISPRO 100 UNIT/ML SUBCUT SCH ×4 (08:40→21:39)
[2018-11-29] MEDS: PRAMOXINE/HYDROCORTISONE RECTAL FOAM 10 GM CAN RECTAL SCH ×4 (08:41→20:51)
[2018-11-29] MEDS ORDERED: FUROSEMIDE 20 MG/2 ML VIAL IV ONE (08:52)
[2018-11-29 09:18] LABS: Hematocrit 38.9 VOL% (42.0-52.0)
[2018-11-29 09:19] LABS: Hemoglobin 11.6 GM/DL (14.0-18.0)
[2018-11-29] MEDS ORDERED: MESALAMINE ENEMA 4 GM/60 ML BOTTLE RECTAL SCH (13:24)
[2018-11-29] MEDS: ATORVASTATIN 10 MG TABLET PO SCH (17:13)
[2018-11-29] MEDS: INSULIN GLARGINE 100 UNIT/ML SUBCUT SCH (20:51)
[2018-11-29] MEDS: MESALAMINE ENEMA 4 GM/60 ML BOTTLE RECTAL SCH (20:51)
[2018-11-30] MEDS: MORPHINE 4 MG/1 ML VIAL IV PRN (00:09)
[2018-11-30] MEDS: methylPREDNISolone SOD SUC 40 MG/1 ML VIAL IV SCH ×2 (02:34→08:53)
[2018-11-30 06:24] LABS: Calcium 8.1 MG/DL (8.5-10.1); Osmolality,Calculated 286.3 MOS/KG (273-304)
[2018-11-30] MEDS: METOPROLOL TARTRATE 25 MG TABLET PO SCH (08:54)
[2018-11-30] MEDS: INSULIN LISPRO 100 UNIT/ML SUBCUT SCH ×2 (08:54→12:00)
[2018-11-30] MEDS: PANTOPRAZOLE 40 MG TABLET PO SCH (08:54)
[2018-11-30] MEDS: MESALAMINE 800 MG TABLET PO SCH ×2 (08:54→12:00)
[2018-11-30] MEDS: ENALAPRIL 10 MG TABLET PO SCH (08:54)
[2018-11-30] MEDS: ASPIRIN CHEW 81 MG TABLET PO SCH (08:54)
[2018-11-30] MEDS: PRAMOXINE/HYDROCORTISONE RECTAL FOAM 10 GM CAN RECTAL SCH (08:55)
[2018-11-30 11:47] VITALS: BP 123/57
== END 2018-11-30 12:55 | disposition home or self-care (01) | DRG 386 ==
LOC: EDUNIT# → EDBD → N.EDINP 21:41 → N.ED 21:41 → N.5E 11-17 03:44 → SUATTDRO 11-19 13:03
PROVIDERS: ADMIT Internal Medicine; ATTEND Internal Medicine